=== PATIENT | male | born 1950 | race Caucasian/White ===

== ENCOUNTER 2019-06-08 13:24 | Inpatient (IN) | payer MEDICARE, OTHER ==
[~2019-06-08] VITALS: Ht 180.3 cm; Wt 78.4 kg
[~2019-06-08 13:24] MED LIST: OLAN2.5T3 PO
[2019-06-08 15:16] LABS: BASOPHILS % (AUTO) 0.3 % (0.0-2.0); EOSINOPHILS % (AUTO) 2.7 % (1.0-6.0); HEMATOCRIT 42.9 % (41-53); HEMOGLOBIN 14.1 g/dL (13.5-17.5); LYMPHOCYTES # (AUTO) 1.8 K/uL (1.0-4.8); LYMPHOCYTES % (AUTO) 22.1 % (22.0-44.0); MEAN CORPUSCULAR HGB CONC 32.8 G/dL (31.0-37.0); MEAN CORPUSCULAR VOLUME 95 fL (80-100); MONOCYTES # (AUTO) 0.8 K/uL (0.1-1.0); MONOCYTES % (AUTO) 9.7 % (2.0-9.0); NEUTROPHILS # (AUTO) 5.2 K/uL (1.8-7.7); NEUTROPHILS % (AUTO) 65.2 % (40.0-70.0); PLATELET COUNT (AUTO) 203 K/uL (150-450); RED BLOOD CELL COUNT(AUTO) 4.53 MIL/uL (4.50-5.90); RED CELL DISTRIBUTION WIDTH 15.3 % (11.5-14.5)
[2019-06-08 15:24] LABS: ANION GAP 14 mmol/L (8-16); CALCIUM, TOTAL 9.4 mg/dL (8.8-10.5); CARBON DIOXIDE 24 mmol/L (22-29); CHLORIDE 104 mmol/L (98-107); CREATININE 2.27 mg/dL (0.60-1.30); GLOMERULAR FILTR. RATE CALC 29 mL/min (>60); GLUCOSE,RANDOM 127 mg/dL (70-110); POTASSIUM 3.9 mmol/L (3.5-5.1); SODIUM SERUM 142 mmol/L (136-145); UREA NITROGEN, BLOOD 27 mg/dL (7-18)
[2019-06-08 15:31] LABS: ALANINE AMINOTRANSFERASE 22 U/L (12-78); ALBUMIN 3.6 g/dL (3.4-5.0); ALKALINE PHOSPHATASE 132 U/L (46-116); ASPARTATE AMINOTRANSFERASE 22 U/L (15-37); BILIRUBIN,TOTAL 0.3 mg/dL (0.1-1.0); TOTAL PROTEIN, SERUM 7.5 g/dL (6.4-8.2)
[2019-06-08 17:04] LABS: CREATINE KINASE, TOTAL ONLY 104 U/L (39-308)
[2019-06-08 17:45] LABS: APPEARANCE,URINE CLOUDY (CLEAR); BILIRUBIN,URINE NEGATIVE (NEGATIVE); GLUCOSE, URINE (UA) NEGATIVE (NEGATIVE); KETONES,URINE NEGATIVE (NEGATIVE); LEUKOCYTE ESTERASE ,URINE LARGE (NEGATIVE); OCCULT BLOOD,URINE MODERATE (NEGATIVE); PROTEIN,URINE SEE CONFIRM (NEGATIVE); UROBILINOGEN,URINE 0.2 mg/dL (<=1.0)
[2019-06-08 17:53] LABS: BACTERIA,URINE Many /HPF (None Seen); NITRATE,URINE POSITIVE (NEGATIVE); SQUAMOUS EPITHELIAL CELL,UR Few /LPF (None Seen); SULFOSALICYLIC ACID,URINE 2+ (Negative); WBC,URINE 26-50 /HPF (0-5)
[2019-06-08 18:15] LABS: AMPHET/METH SCREEN,URINE NEGATIVE (NEGATIVE); BARBITURATE SCREEN, URINE NEGATIVE (NEGATIVE); BENZODIAZEPINES SCREEN,URINE NEGATIVE (NEGATIVE); CANNABINOID SCREEN,URINE NEGATIVE (NEGATIVE); COCAINE SCREEN,URINE NEGATIVE (NEGATIVE); METHADONE SCREEN, URINE NEGATIVE (NEGATIVE); OPIATE SCREEN,URINE NEGATIVE (NEGATIVE)
[2019-06-08] MEDS ORDERED: ONDANSETRON HCL 4 MG/2 ML VIAL IVP PRN (18:15)
[2019-06-08] MEDS ORDERED: ACETAMINOPHEN 325 MG TABLET PO PRN (18:15)
[2019-06-08] MEDS ORDERED: CefTRIAXone 1 GM/DEXTROSE 50 ML IV ONE (18:15)
[2019-06-08] MEDS ORDERED: 0.9% SODIUM CHLORIDE 10 ML SYRINGE IVP PRN (18:15)
[2019-06-08 18:16] LABS: PHENCYCLIDINE SCREEN,URINE NEGATIVE (NEGATIVE)
[2019-06-08 23:30] VITALS: BP 147/85
[2019-06-09] MEDS ORDERED: BISACODYL 10 MG RECTAL RECTAL SUPPOSITORY PR PRN (01:30)
[2019-06-09] MEDS ORDERED: MAGNESIUM HYDROXIDE SUSPENSION 30 ML UDCUP PO PRN (01:30)
[2019-06-09] MEDS ORDERED: ACETAMINOPHEN 325 MG TABLET PO PRN (01:30)
[2019-06-09] MEDS ORDERED: ZOLPIDEM TARTRATE 5 MG TABLET PO PRN (01:30)
[2019-06-09] MEDS ORDERED: ALBUTEROL SULFATE 2.5 MG/0.5 ML NEB SOLUTION NEB PRN (01:30)
[2019-06-09] MEDS ORDERED: IPRATROPIUM BROMIDE 0.5 MG/2.5 ML NEB SOLUTION NEB PRN (01:30)
[2019-06-09] MEDS: HYDROCODONE/ACETAMINOPHEN 5-325 MG TABLET PO PRN ×2 (01:43→11:48)
[2019-06-09 04:10] VITALS: BP 112/65
[2019-06-09] MEDS ORDERED: SODIUM CHLORIDE 0.9% 250 ML IV ONE (06:14)
[2019-06-09 07:35] VITALS: BP 109/56
[2019-06-09] MEDS: MORPHINE SULFATE 2 MG/ML SYRINGE IVP PRN ×2 (08:22→19:39)
[2019-06-09] MEDS: HEPARIN SODIUM,PORCINE 5,000 UNITS/ML VIAL SQ SCH ×3 (08:22→23:27)
[2019-06-09] MEDS: CefTRIAXone SODIUM 2 GM in DEXTROSE 5%-WATER 50 ML IV SCH (08:23)
[2019-06-09] MEDS: DOCUSATE SODIUM 100 MG CAPSULE PO SCH ×2 (08:23→19:39)
[2019-06-09 11:08] VITALS: BP 140/77
[2019-06-09 14:43] VITALS: BP 114/57
[2019-06-09 19:30] VITALS: BP 140/75
[2019-06-09 23:15] VITALS: BP 113/58
[2019-06-10 05:00] VITALS: BP 114/68
[2019-06-10 07:28] VITALS: BP 138/83
[2019-06-10] MEDS: DOCUSATE SODIUM 100 MG CAPSULE PO SCH ×2 (08:00→20:00)
[2019-06-10] MEDS: CefTRIAXone SODIUM 2 GM in DEXTROSE 5%-WATER 50 ML IV SCH (08:00)
[2019-06-10] MEDS: HEPARIN SODIUM,PORCINE 5,000 UNITS/ML VIAL SQ SCH ×3 (08:00→23:57)
[2019-06-10] MEDS: HYDROCODONE/ACETAMINOPHEN 5-325 MG TABLET PO PRN ×2 (10:35→15:47)
[2019-06-10 11:25] VITALS: BP 168/77
[2019-06-10] MEDS: SODIUM CHLORIDE 0.45% 1,000 ML IV SCH ×2 (14:31→23:56)
[2019-06-10 15:12] VITALS: BP 132/68
[2019-06-10 19:16] VITALS: BP 135/70
[2019-06-10] MEDS: MORPHINE SULFATE 2 MG/ML SYRINGE IVP PRN (20:00)
[2019-06-10] MEDS: ONDANSETRON HCL 4 MG/2 ML VIAL IVP PRN ×2 (21:02→21:59)
[2019-06-10 23:22] VITALS: BP 149/76
[2019-06-11 06:23] VITALS: BP 156/89
[2019-06-11 06:54] LABS: CALCIUM, TOTAL 9.1 mg/dL (8.8-10.5); CREATININE 2.14 mg/dL (0.60-1.30); PHOSPHORUS 3.8 mg/dL (2.5-4.9); POTASSIUM 4.5 mmol/L (3.5-5.1)
[2019-06-11 07:19] VITALS: BP 143/77
[2019-06-11] MEDS: DOCUSATE SODIUM 100 MG CAPSULE PO SCH ×2 (08:34→21:00)
[2019-06-11] MEDS: HEPARIN SODIUM,PORCINE 5,000 UNITS/ML VIAL SQ SCH ×3 (08:35→23:11)
[2019-06-11] MEDS: CefTRIAXone SODIUM 2 GM in DEXTROSE 5%-WATER 50 ML IV SCH (08:35)
[2019-06-11] MEDS: SODIUM CHLORIDE 0.45% 1,000 ML IV SCH (10:38)
[2019-06-11 11:46] VITALS: BP 152/81
[2019-06-11] MEDS: HYDROCODONE/ACETAMINOPHEN 5-325 MG TABLET PO PRN ×2 (12:20→18:50)
[2019-06-11 16:02] VITALS: BP 146/85
[2019-06-11 19:25] VITALS: BP 145/89
[2019-06-11] MEDS: MORPHINE SULFATE 2 MG/ML SYRINGE IVP PRN (19:42)
[2019-06-11 23:07] VITALS: BP 138/83
[2019-06-12 04:48] VITALS: BP 115/74
[2019-06-12 07:39] VITALS: BP 137/73
[2019-06-12 07:43] LABS: CALCIUM, TOTAL 8.9 mg/dL (8.8-10.5); CREATININE 2.16 mg/dL (0.60-1.30); MAGNESIUM 1.9 mg/dL (1.80-2.40); PHOSPHORUS 3.7 mg/dL (2.5-4.9); POTASSIUM 4.3 mmol/L (3.5-5.1)
[2019-06-12] MEDS: LEVOFLOXACIN 500 MG TABLET PO SCH (08:22)
[2019-06-12] MEDS: HEPARIN SODIUM,PORCINE 5,000 UNITS/ML VIAL SQ SCH ×3 (08:22→23:35)
[2019-06-12] MEDS: DOCUSATE SODIUM 100 MG CAPSULE PO SCH ×2 (08:22→23:35)
[2019-06-12] MEDS: HYDROCODONE/ACETAMINOPHEN 5-325 MG TABLET PO PRN ×3 (08:23→23:35)
[2019-06-12] MEDS: SODIUM CHLORIDE 0.45% 1,000 ML IV SCH (08:24)
[2019-06-12 11:32] VITALS: BP 130/72
[2019-06-12 15:47] VITALS: BP 148/89
[2019-06-12 19:16] VITALS: BP 145/76
[2019-06-12 23:09] VITALS: BP 147/78
[2019-06-13] VITALS (7 sets, daily range): BP systolic 126–148; BP diastolic 71–89
[2019-06-13] MEDS: DOCUSATE SODIUM 100 MG CAPSULE PO SCH ×2 (08:44→20:38)
[2019-06-13] MEDS: LEVOFLOXACIN 500 MG TABLET PO SCH (08:44)
[2019-06-13] MEDS: HEPARIN SODIUM,PORCINE 5,000 UNITS/ML VIAL SQ SCH ×3 (08:44→23:28)
[2019-06-14 04:00] VITALS: BP 124/68
[2019-06-14 06:15] LABS: CALCIUM, TOTAL 9.4 mg/dL (8.8-10.5); CREATININE 2.3 mg/dL (0.60-1.30); MAGNESIUM 2.1 mg/dL (1.80-2.40); PHOSPHORUS 3.7 mg/dL (2.5-4.9)
[2019-06-14 07:25] VITALS: BP 126/70
[2019-06-14] MEDS: MORPHINE SULFATE 2 MG/ML SYRINGE IVP PRN ×3 (07:34→17:50)
[2019-06-14] MEDS: LEVOFLOXACIN 500 MG TABLET PO SCH (07:34)
[2019-06-14] MEDS: HEPARIN SODIUM,PORCINE 5,000 UNITS/ML VIAL SQ SCH ×3 (07:34→23:25)
[2019-06-14] MEDS: DOCUSATE SODIUM 100 MG CAPSULE PO SCH ×2 (07:34→19:44)
[2019-06-14] MEDS: OLANZapine 2.5 MG TABLET PO SCH ×2 (10:37→19:44)
[2019-06-14 11:09] VITALS: BP 108/72
[2019-06-14 15:32] VITALS: BP 117/68
[2019-06-14 19:15] VITALS: BP 121/68
[2019-06-15 03:30] VITALS: BP 119/66
[2019-06-15 07:34] VITALS: BP 117/68
[2019-06-15] MEDS: OLANZapine 2.5 MG TABLET PO SCH (08:20)
[2019-06-15] MEDS: DOCUSATE SODIUM 100 MG CAPSULE PO SCH ×2 (08:20→19:38)
[2019-06-15] MEDS: HEPARIN SODIUM,PORCINE 5,000 UNITS/ML VIAL SQ SCH ×3 (08:20→23:18)
[2019-06-15] MEDS: LEVOFLOXACIN 500 MG TABLET PO SCH (08:20)
[2019-06-15] MEDS: MORPHINE SULFATE 2 MG/ML SYRINGE IVP PRN (08:30)
[2019-06-15 08:41] LABS: CREATININE 2.47 mg/dL (0.60-1.30); PHOSPHORUS 3.6 mg/dL (2.5-4.9); POTASSIUM 4.5 mmol/L (3.5-5.1)
[2019-06-15] MEDS: OLANZapine 5 MG TABLET PO SCH ×2 (10:58→19:38)
[2019-06-15] MEDS: SODIUM CHLORIDE 0.9% 1,000 ML IV SCH ×2 (10:58→20:17)
[2019-06-15 11:12] VITALS: BP 116/68
[2019-06-15 15:00] VITALS: BP 110/58
[2019-06-15] MEDS: HYDROCODONE/ACETAMINOPHEN 5-325 MG TABLET PO PRN (19:39)
[2019-06-15 20:07] VITALS: BP 112/45
[2019-06-15 23:43] VITALS: BP 105/57
[2019-06-16 04:00] VITALS: BP 120/64
[2019-06-16] MEDS: SODIUM CHLORIDE 0.9% 1,000 ML IV SCH ×2 (06:30→23:26)
[2019-06-16 07:47] LABS: CALCIUM, TOTAL 8.6 mg/dL (8.8-10.5); CREATININE 2.31 mg/dL (0.60-1.30); MAGNESIUM 2.1 mg/dL (1.80-2.40); PHOSPHORUS 3.5 mg/dL (2.5-4.9); POTASSIUM 4.9 mmol/L (3.5-5.1)
[2019-06-16 07:50] VITALS: BP 126/78
[2019-06-16] MEDS ORDERED: PENTETATE DTPA TC99M/MCL ISOTOPE 1 EA INJ INJ ONE (08:55)
[2019-06-16] MEDS ORDERED: MAA ALBUMIN AGGREGATED TC99M/UD<10MCL ISOTOPE 1 EA INJ INJ ONE (09:15)
[2019-06-16] MEDS: HEPARIN SODIUM,PORCINE 5,000 UNITS/ML VIAL SQ SCH ×3 (09:57→23:26)
[2019-06-16] MEDS: OLANZapine 5 MG TABLET PO SCH ×2 (09:57→20:05)
[2019-06-16] MEDS: DOCUSATE SODIUM 100 MG CAPSULE PO SCH ×2 (09:57→20:05)
[2019-06-16] MEDS: LEVOFLOXACIN 500 MG TABLET PO SCH (09:57)
[2019-06-16 11:32] VITALS: BP 127/77
[2019-06-16] MEDS: HYDROCODONE/ACETAMINOPHEN 5-325 MG TABLET PO PRN ×2 (12:34→20:05)
[2019-06-16 16:49] VITALS: BP 133/71
[2019-06-16 19:41] VITALS: BP 136/69
[2019-06-16 23:24] VITALS: BP 121/60
[2019-06-17] MEDS: HYDROCODONE/ACETAMINOPHEN 5-325 MG TABLET PO PRN ×4 (00:34→18:39)
[2019-06-17 04:02] VITALS: BP 118/64
[2019-06-17] MEDS: OLANZapine 5 MG TABLET PO SCH ×2 (08:13→20:29)
[2019-06-17] MEDS: HEPARIN SODIUM,PORCINE 5,000 UNITS/ML VIAL SQ SCH ×2 (08:13→15:08)
[2019-06-17] MEDS: DOCUSATE SODIUM 100 MG CAPSULE PO SCH ×2 (08:13→20:30)
[2019-06-17] MEDS: LEVOFLOXACIN 500 MG TABLET PO SCH (08:13)
[2019-06-17 08:50] VITALS: BP 145/96
[2019-06-17] MEDS: SODIUM CHLORIDE 0.9% 1,000 ML IV SCH ×2 (11:13→22:33)
[2019-06-17 11:22] VITALS: BP 136/71
[2019-06-17 12:35] LABS: CREATININE,URINE RANDOM 30.6 mg/dL (30.0-125.0)
[2019-06-17 12:45] LABS: APPEARANCE,URINE CLEAR (CLEAR); BILIRUBIN,URINE NEGATIVE (NEGATIVE); GLUCOSE, URINE (UA) NEGATIVE (NEGATIVE); KETONES,URINE NEGATIVE (NEGATIVE); LEUKOCYTE ESTERASE ,URINE SMALL (NEGATIVE); NITRATE,URINE POSITIVE (NEGATIVE); OCCULT BLOOD,URINE TRACE (NEGATIVE); PROTEIN,URINE POS 1+ (NEGATIVE); UROBILINOGEN,URINE 0.2 mg/dL (<=1.0)
[2019-06-17 12:54] LABS: BACTERIA,URINE Many /HPF (None Seen); SQUAMOUS EPITHELIAL CELL,UR Few /LPF (None Seen)
[2019-06-17 13:40] LABS: CALCIUM, TOTAL 8.6 mg/dL (8.8-10.5); CREATININE 2.04 mg/dL (0.60-1.30); POTASSIUM 4.7 mmol/L (3.5-5.1)
[2019-06-17 13:42] LABS: BASOPHILS % (AUTO) 0.4 % (0.0-2.0); HEMOGLOBIN 13.3 g/dL (13.5-17.5); LYMPHOCYTES # (AUTO) 1.9 K/uL (1.0-4.8); LYMPHOCYTES % (AUTO) 23.8 % (22.0-44.0); MEAN CORPUSCULAR HEMOGLOBIN 30.7 pg (26.0-34.0); MEAN CORPUSCULAR HGB CONC 31.6 G/dL (31.0-37.0); MEAN CORPUSCULAR VOLUME 97 fL (80-100); MONOCYTES # (AUTO) 0.7 K/uL (0.1-1.0); MONOCYTES % (AUTO) 8.6 % (2.0-9.0); NEUTROPHILS % (AUTO) 64.2 % (40.0-70.0); PLATELET COUNT (AUTO) 218 K/uL (150-450); RED BLOOD CELL COUNT(AUTO) 4.32 MIL/uL (4.50-5.90); RED CELL DISTRIBUTION WIDTH 16.1 % (11.5-14.5)
[2019-06-17 13:46] LABS: ALBUMIN 3.4 g/dL (3.4-5.0); BILIRUBIN,TOTAL 0.3 mg/dL (0.1-1.0); TOTAL PROTEIN, SERUM 6.8 g/dL (6.4-8.2)
[2019-06-17 15:35] VITALS: BP 106/61
[2019-06-17 19:52] VITALS: BP 107/73
[2019-06-18 00:02] VITALS: BP 123/59
[2019-06-18] MEDS: HEPARIN SODIUM,PORCINE 5,000 UNITS/ML VIAL SQ SCH ×2 (00:50→08:19)
[2019-06-18 05:15] VITALS: BP 154/85
[2019-06-18] MEDS: HYDROCODONE/ACETAMINOPHEN 5-325 MG TABLET PO PRN (05:57)
[2019-06-18 08:07] LABS: CALCIUM, TOTAL 8.8 mg/dL (8.8-10.5); CREATININE 2.37 mg/dL (0.60-1.30); MAGNESIUM 1.9 mg/dL (1.80-2.40); PHOSPHORUS 2.8 mg/dL (2.5-4.9); POTASSIUM 5.6 mmol/L (3.5-5.1)
[2019-06-18] MEDS: LEVOFLOXACIN 500 MG TABLET PO SCH (08:13)
[2019-06-18] MEDS: OLANZapine 5 MG TABLET PO SCH (08:13)
[2019-06-18] MEDS: DOCUSATE SODIUM 100 MG CAPSULE PO SCH (08:13)
[2019-06-18] MEDS ORDERED: SODIUM CHLORIDE 0.9% 500 ML IV ONE (08:15)
[2019-06-18 08:33] VITALS: BP 135/78
[2019-06-18] MEDS ORDERED: SODIUM POLYSTYRENE SULFONATE 15 GM/60 ML SUSPENSION BOTTLE PO ONE (11:45)
[2019-06-18 12:07] VITALS: BP 111/65
== END 2019-06-18 15:15 | DRG 690 ==
LOC: EMS 13:28 → 6N 22:41 → 4E 06-11 11:40 → 6N 06-13 14:04
PROVIDERS: ADMIT Hospitalist; ATTEND Hospitalist
DX: N39.0 Urinary tract infection, site not specified (principal); N18.9 Chronic kidney disease, unspecified; I12.9 Hypertensive chronic kidney disease with stage 1 through stage 4 chronic kidney disease, or unspecified chronic kidney disease; N13.8 Other obstructive and reflux uropathy; B35.9 Dermatophytosis, unspecified; F20.9 Schizophrenia, unspecified; J44.9 Chronic obstructive pulmonary disease, unspecified; N40.1 Benign prostatic hyperplasia with lower urinary tract symptoms; F17.210 Nicotine dependence, cigarettes, uncomplicated; M19.90 Unspecified osteoarthritis, unspecified site
CPT/HCPCS: 70450; 78582; 82570; 83735; 84100; 84156; 87086; 93005; 97110; 97116; 97162; 97166; 97530; 97535; A9539; A9540; G0378; G0480; J0696; J1644; J2270; J2405; J7030; J7040; J7050; J7060